=== PATIENT | female | born 1935 | race Caucasian/White ===

== ENCOUNTER 2021-07-04 08:15 | Outpatient (NON) | payer OTHER, SELFPAY ==
[2021-07-04 09:08] LABS: Ferritin 31 ng/mL (8-252); Iron 38 ug/dL (50-170); Percent Iron Saturation 14 % (12-57); Vitamin B12 729 pg/mL (193-986)
[2021-07-04 09:42] LABS: Folic Acid 13.2 ng/mL (8.6->20)
[2021-07-08 12:34] LABS: Transferrin 238 mg/dL (188-341)
== END 2021-07-04 08:16 | disposition home or self-care (01) ==
LOC: CHSLAB 08:19
PROVIDERS: Visit Provider Family Medicine
DX: D64.9 Anemia, unspecified (principal); I50.9 Heart failure, unspecified; I12.9 Hypertensive chronic kidney disease with stage 1 through stage 4 chronic kidney disease, or unspecified chronic kidney disease; N18.9 Chronic kidney disease, unspecified; M81.0 Age-related osteoporosis without current pathological fracture
CPT/HCPCS: 36415; 82607; 82728; 82746; 83540; 83550; 84466

== ENCOUNTER 2021-07-11 07:01 | Outpatient (NON) | payer OTHER, SELFPAY ==
[2021-07-11 07:54] LABS: Basophils Absolute Auto 0.01 K/mm3 (0.00-0.10); Basophils Percent Auto 0.2 % (0.0-1.0); Eosinophils Absolute Auto 0.07 K/mm3 (0.02-0.50); Eosinophils Percent Auto 1.2 % (1.0-6.0); Hematocrit 31.5 % (35.0-42.0); Hemoglobin 9.8 g/dL (11.7-13.8); Immature Granulocyte Absolute 0.02 K/mm3 (0.00-0.00); Immature Granulocyte Percent A 0.3 % (0.0-0.0); Lymphocytes Absolute Auto 0.91 K/mm3 (1.10-4.50); Lymphocytes Percent Auto 15.5 % (18.0-42.0); Mean Corpuscular HGB Conc 31.1 g/dL (32.0-36.0); Mean Corpuscular Hemoglobin 30.3 pg (27.0-31.0); Mean Corpuscular Volume 97.5 fL (78.0-102.0); Mean Platelet Volume 10.3 fl (9.2-11.8); Monocytes Absolute Auto 0.42 K/mm3 (0.10-0.90); Monocytes Percent Auto 7.2 % (2.0-11.0); Neutrophils Absolute Auto 4.4 K/mm3 (1.7-7.2); Neutrophils Percent Auto 75.6 % (50.0-70.0); Platelet Count Result 210 K/mm3 (150-420); Red Blood Count 3.23 M/mm3 (4.20-5.40); Red Cell Distribution Width 13.8 % (11.6-14.4); White Blood Count 5.9 K/mm3 (4.8-10.8)
[2021-07-11 08:29] LABS: Alanine Aminotransferase 13 U/L (14-59); Albumin Level 3.3 g/dL (3.4-5.0); Alkaline Phosphatase 71 U/L (46-116); Anion Gap 8 mmol/L (8-16); Aspartate Amino Transferase 13 U/L (15-37); Bilirubin Direct 0.1 mg/dL (0-0.2); Bilirubin,Total 0.4 mg/dL (0.00-1.00); Blood Urea Nitrogen 34 mg/dL (7-18); Calcium 9.1 mg/dL (8.5-10.1); Carbon Dioxide 28 mmol/L (21-32); Chloride 101 mmol/L (98-108); Estimated Glomerular Filt Rate > 60; Glucose 90 mg/dL (70-99); Magnesium 1.8 mg/dL (1.8-2.4); Osmolality Calculated 291 mOsm/kg (285-295); Potassium 4.4 mmol/L (3.5-5.1); Sodium 137 mmol/L (136-145); Total Protein 6.7 g/dL (6.4-8.2); Vitamin B12 656 pg/mL (193-986)
[2021-07-11 08:53] LABS: Folic Acid 14.7 ng/mL (8.6->20)
[2021-07-11 14:17] LABS: Thyroid Stimulating Hormone 0.68 uIU/mL (0.36-3.74)
[2021-07-11 14:54] LABS: Add Urine Microscopic? YES; Appearance Urine Clear (Clear); Bilirubin Urine Negative (Negative); Blood Urine 3+ (Negative); Color Urine Light Yellow (Yellow); Glucose Urine UA Negative (Negative); Ketones Urine Negative (Negative); Leukocyte Esterase Ur Negative (Negative); Nitrate Urine Positive (Negative); Protein Urine Trace (Negative); Urobilinogen Urine 0.2 mg/dL (0.2-1.0)
[2021-07-11 15:06] LABS: Creatinine Urine 60.52 mg/dL (40-278)
[2021-07-11 15:08] LABS: MALB Creatinine Ratio 300.8 mg/g (0-30); Microalbumin Urine Random 182.1 mg/L
[2021-07-11 15:11] LABS: WBC Urine 0-3 /hpf (0-3)
[2021-07-11 15:12] LABS: Bacteria Urine 3+ /hpf; Squamous Epithelial Cell Urine Few /hpf (Few)
[2021-07-15 02:08] LABS: Vitamin D 25 Hydroxy 39 ng/mL (30-100)
[2021-07-17 16:49] LABS: Methylmalonic Acid 191 nmol/L (87-318)
== END 2021-07-11 07:02 | disposition home or self-care (01) ==
LOC: CHSLAB 07:02
PROVIDERS: Visit Provider Family Medicine
DX: I50.9 Heart failure, unspecified (principal); E55.9 Vitamin D deficiency, unspecified; I12.9 Hypertensive chronic kidney disease with stage 1 through stage 4 chronic kidney disease, or unspecified chronic kidney disease; N18.9 Chronic kidney disease, unspecified; N39.0 Urinary tract infection, site not specified
CPT/HCPCS: 36415; 80048; 80076; 81001; 82043; 82306; 82607; 82746; 83735; 83921; 84443; 85025

== ENCOUNTER 2021-07-11 17:55 | Observation (INO) | payer OTHER, MEDICARE, SELFPAY ==
--- NOTE | ~2021-07-11 | XR_ITS ---
EXAMINATION: XR chest 1V portable EXAM DATE: 07/12/2021 06:30 INDICATION: Elevated bnp TECHNIQUE: Portable AP frontal chest x-ray was obtained. Comparison is made to prior examination from 07/11/2021. FINDINGS: There is a dual lead pacemaker/AICD seen with leads projecting over the expected locations of the right atrial appendage and right ventricle. There is a nasogastric tube seen with tip collimat ed off the study, but below the left hemidiaphragm. Spine stimulator leads. There is cardiomegaly and pulmonary vascular congestion. Patchy bibasilar edema, atelectasis an/or pneumonia. No pneumothorax. Some chronic hyperinflation. Mitral valve replacement. There are bony degenerative changes. IMPRESSION: 1. Findings consistent with CHF exacerbation. 2. Scattered basilar atelectasis, edema and/or pneumonia, mild interval progression. Reviewed, dictated and finalized at location A. IMPRESSION: 1. Findings consistent with CHF exacerbation. 2. Scattered basilar atelectasis, edema and/or pneumonia, mild interval progre ssion.
--- NOTE | ~2021-07-11 | XR_ITS ---
EXAMINATION: XR chest 1V portable INDICATION: Shortness of breath and productive cough TECHNIQUE: Portable AP chest at 1842 hours COMPARISON: None available FINDINGS: Cardiomegaly is noted. There is a mild diffuse interstitial pattern. There are minimal airs pace opacities of the left lung base. No pneumothorax is identified. A dual-lead cardiac pacemaker of the left chest wall ends with leads in expected locations. Changes of cardiac valve surgery are note d. IMPRESSION: 1. Cardiomegaly with mild pulmonary edema. 2. Left basilar airspace opacity, consistent with atelectasis versus pneumonia. Reviewed, dictated and finalized at location F.
[2021-07-11 18:17] VITALS: BP 95/54; PULSE 106; RESP 16; TEMP 36.3; O2SAT 99
--- NOTE | 2021-07-11 18:27 | ECG_ITS ---
Measurements Intervals [place] Rate: 98 P: TX: 0 QRS: 147 QRSD: 164 T: 91 QT: 400 QTc: 512 Interpretive Statements ELECTRONIC AV SEQUENTIAL PACED RATE WITH APPROPRIATE SENSING AND CAPTURE ABNORMAL RHYTHM ECG NO PREVIOUS ECG AVAILABLE FOR COMPARISON Electronically Signed On 07-12-2021 15:32:12 CDT by Gordy Zambrano M.D.
--- NOTE | 2021-07-11 18:37 | ED.FEVER ---
HPI - Fever General Chief Complaint: Fever Stated Complaint: fever Mode of arrival: wheelchair Limitations: altered mental status ( history of dementia) History of Present Illness HPI Narrative: patient is 85-year-old female from [facility] she was wheeled over and left at admitting, with increased shortness of breath with upper airway gurgling with no wheezing the patient is demented is a DNR, has a history of CHF, currently O2 sats 97% on 3L. Patient denies any chest pain no belly pain does have some peripheral edema, [facility] staff stated that she had fever at the [facility] but her current temperature is 97 0.5 and patient had a negative rapid COVID that was performed today. MD elicited complaint: fever and weakness Onset (ago): day(s) Related Data Home Medications Medication Instructions Recorded Confirmed acetaminophen [Tylenol] 650 mg PO Q4H PRN 07/11/21 07/11/21 apixaban [Eliquis] 5 mg PO BID 07/11/21 07/11/21 carvedilol 6.25 mg PO BID 07/11/21 07/11/21 docusate sodium 100 mg PO PC PRN MDD 2 07/11/21 07/11/21 duloxetine 30 mg PO BID 07/11/21 07/11/21 furosemide 20 mg PO BID 07/11/21 07/11/21 gabapentin 600 mg PO BID 07/11/21 07/11/21 memantine 7 mg PO DAILY 07/11/21 07/11/21 risperidone 0.25 mg PO HS 07/11/21 07/11/21 sacubitril-valsartan [Entresto] 49 - 51 tablet PO BID 07/11/21 07/11/21 spironolactone 12.5 mg PO DAILY 07/11/21 07/11/21 Allergies Allergy/AdvReac Type Severity Reaction Status Date / Time ciprofloxacin Allergy Unknown Unknown Verified 07/11/21 18:30 fluocinolone acetonide Allergy Unknown Unknown Verified 07/11/21 18:30 morphine Allergy Unknown Unknown Verified 07/11/21 18:30 prochlorperazine Allergy Unknown Unknown Verified 07/11/21 18:30 Review of Systems Review of Systems: All systems reviewed & are unremarkable except as noted in HPI and below PMFSH Past Medical History Medical History CHF (congestive heart failure) Family History Family History Father Family history of heart disease in male family member before age 55 Social History Social History Smoking status: Never smoker Alcohol intake: never Exam Const: General: no acute distress and ill appearing Orientation/consciousness: patient oriented x3 and confusion Limitations: altered mental status HENMT: Head: normal to inspection Eyes: Conjunctivae: conjunctivae normal Pupils: Equal, round and reactive pupils present Neck: Neck: normal visual inspection, no lymphadenopathy and no meningeal signs Chest: Chest palpation & inspection: normal inspection of the chest Resp: Auscultation: crackles and diminished lung sounds Cardio: Rate: regular rate and tachycardic GI: GI Palp: Yes Soft to palpation Percussion: Yes normal to percussion : General: Yes no CVA tenderness Skin: General skin exam: normal color Rashes: no rashes Neuro: General: moves all extremities, no meningeal signs and no focal motor deficits Speech: Abnormal speech present Psych: Appearance: disheveled Mental Status: mental status grossly normal Course INSPECTOR AND MENDER/PA Physician Supervision patient had a chest x-ray and labs at reviewed were reviewed, the patient started on oxygen and O2 sat currently at 97% current temperature is 97.7?. Vital Signs Vital signs: Vital Signs Temperature 36.3 C L 07/11/21 18:17 Pulse Rate 106 H 07/11/21 18:17 Respiratory Rate 16 07/11/21 18:17 Blood Pressure 95/54 L 07/11/21 18:17 Pulse Oximetry 99 07/11/21 18:17 Temperature 36.3 C L 07/11/21 18:17 Pulse Rate 106 H 07/11/21 18:17 Respiratory Rate 16 07/11/21 18:17 Blood Pressure 95/54 L 07/11/21 18:17 Pulse Oximetry 99 07/11/21 18:17 Critical Care Time Critical Care Time Critical Care Time: No Discharge Plan Discharge Clinical Impression: CHF (congestiv
[2021-07-11 18:52] LABS: Basophils Absolute Auto 0.01 K/mm3 (0.00-0.10); Basophils Percent Auto 0.1 % (0.0-1.0); Hematocrit 32.5 % (35.0-42.0); Hemoglobin 10.4 g/dL (11.7-13.8); Immature Granulocyte Absolute 0.04 K/mm3 (0.00-0.00); Immature Granulocyte Percent A 0.4 % (0.0-0.0); Lymphocytes Absolute Auto 0.81 K/mm3 (1.10-4.50); Lymphocytes Percent Auto 8.5 % (18.0-42.0); Mean Corpuscular Hemoglobin 31.1 pg (27.0-31.0); Mean Corpuscular Volume 97.3 fL (78.0-102.0); Mean Platelet Volume 9.9 fl (9.2-11.8); Monocytes Absolute Auto 0.84 K/mm3 (0.10-0.90); Monocytes Percent Auto 8.8 % (2.0-11.0); Neutrophils Absolute Auto 7.8 K/mm3 (1.7-7.2); Neutrophils Percent Auto 82.2 % (50.0-70.0); Platelet Count Result 210 K/mm3 (150-420); Red Blood Count 3.34 M/mm3 (4.20-5.40); Red Cell Distribution Width 13.7 % (11.6-14.4); White Blood Count 9.5 K/mm3 (4.8-10.8)
[2021-07-11 19:18] LABS: Alanine Aminotransferase 14 U/L (14-59); Albumin Level 3.4 g/dL (3.4-5.0); Alkaline Phosphatase 78 U/L (46-116); Anion Gap 9 mmol/L (8-16); Aspartate Amino Transferase 18 U/L (15-37); Bilirubin,Total 0.4 mg/dL (0.00-1.00); Blood Urea Nitrogen 41 mg/dL (7-18); Calcium 9.6 mg/dL (8.5-10.1); Carbon Dioxide 27 mmol/L (21-32); Chloride 101 mmol/L (98-108); Estimated Glomerular Filt Rate 42; Glucose 124 mg/dL (70-99); NT Pro B Type Natriuretic Pept 9094 pg/mL (0-450); Osmolality Calculated 295 mOsm/kg (285-295); Potassium 4.5 mmol/L (3.5-5.1); Sodium 137 mmol/L (136-145); Total Protein 7.7 g/dL (6.4-8.2)
[2021-07-11 19:28] LABS: CRP > 10.6 mg/dL (0.0-0.9)
[2021-07-11 19:49] VITALS: O2SAT 96
[2021-07-11 20:00] VITALS: PULSE 99; O2SAT 93; O2SAT 95
[2021-07-11 20:52] VITALS: BP 85/61; PULSE 99; RESP 25; TEMP 37.2; O2SAT 95
--- NOTE | 2021-07-11 20:55 | PC.NURSE ---
admit for observation room 206
[2021-07-11] MEDS: DULoxetine HCL 30 MG CAPSULE.DR PO (21:02)
[2021-07-11] MEDS: GABAPENTIN 300 MG CAPSULE 600 MG PO (21:13)
[2021-07-11] MEDS: risperiDONE 0.25 MG TABLET PO (21:30)
--- NOTE | 2021-07-11 21:42 | PC.NURSE ---
Spoke with patient's daughter Malka Jackson-first senior professional services consultant list for mother. Stated father is POA but is 87 and age related issues. He has been difficult and disruptive at nursing facility when visiting patient without other family present. Is allowed to visit with other family present. Patient is alert to self only. Audible wheezes-lungs sound congested and wet. Contacted PUNCH PRESS SETTER Sonda-order received to hold fluids. PUNCH PRESS SETTER reports patient had received several BP lowering meds at facility. Will monitor BP.
--- NOTE | 2021-07-11 21:50 | PC.NURSE ---
Patient admitted to room 206 from the ER, is confused and unable to answer questions. Call light is in reach.
--- NOTE | 2021-07-11 22:58 | PC.NURSE ---
16 morales catheter inserted per orders, 300 cc irais urine returned, tolerated fair.
[2021-07-12] VITALS (7 sets, daily range): BP systolic 88–96; BP diastolic 60–64; PULSE 81–93; RESP 20–36; TEMP 35.8–37.7; O2SAT 93–94
[2021-07-12] MEDS: LORazepam INJ (*CRX) 2 MG/ML VIAL 0.5 MG IV PUSH (04:23)
[2021-07-12 05:31] LABS: Hematocrit 31.9 % (35.0-42.0); Hemoglobin 9.9 g/dL (11.7-13.8); Mean Corpuscular Hemoglobin 30.2 pg (27.0-31.0); Mean Corpuscular Volume 97.3 fL (78.0-102.0); Mean Platelet Volume 10.1 fl (9.2-11.8); Platelet Count Result 197 K/mm3 (150-420); Red Blood Count 3.28 M/mm3 (4.20-5.40); Red Cell Distribution Width 13.6 % (11.6-14.4); White Blood Count 8.4 K/mm3 (4.8-10.8)
[2021-07-12 05:47] LABS: Alanine Aminotransferase 11 U/L (14-59); Albumin Level 3.1 g/dL (3.4-5.0); Alkaline Phosphatase 69 U/L (46-116); Anion Gap 8 mmol/L (8-16); Aspartate Amino Transferase 18 U/L (15-37); Bilirubin,Total 0.4 mg/dL (0.00-1.00); Blood Urea Nitrogen 40 mg/dL (7-18); Calcium 9.3 mg/dL (8.5-10.1); Carbon Dioxide 28 mmol/L (21-32); Chloride 102 mmol/L (98-108); Estimated Glomerular Filt Rate 50; Glucose 117 mg/dL (70-99); Magnesium 1.8 mg/dL (1.8-2.4); Osmolality Calculated 296 mOsm/kg (285-295); Potassium 4.1 mmol/L (3.5-5.1); Sodium 138 mmol/L (136-145); Total Protein 7.3 g/dL (6.4-8.2)
[2021-07-12] MEDS: APIXABAN 2.5 MG TABLET 5 MG PO (08:16)
[2021-07-12] MEDS: GABAPENTIN 300 MG CAPSULE 600 MG PO (08:16)
[2021-07-12] MEDS: DULoxetine HCL 30 MG CAPSULE.DR PO (08:21)
[2021-07-12] MEDS: FUROSEMIDE INJ 100 MG/10 ML VIAL 80 MG IV PUSH (08:51)
--- NOTE | 2021-07-12 09:26 | PM.SD2 ---
Same Day Admit/Disch: HPI History of Present Illness Chief complaint: UTI,CHF Narrative: Verito Jackson is a 85 year old female that presented to our emergency department from the halfway for shortness of breath. Patient has a past medical history of congestive heart failure and pacemaker placement. Patient is a poor historian all notes obtained from medical records and family members. Apparently patient was wheeled to our admission department and left unattended by halfway staff at the halfway. According to our ED documentation patient was experiencing shortness of breath while at the halfway. Blood pressure 96/60 according to family member patient blood pressure is chronically low,, 81, 36, 99.9, 94% on 2 L nasal cannula. WBCs 9.5 hemoglobin 10.4, hematocrit 32.5, platelets 210, sodium 137, potassium 4.5, BUN 41, creatinine 1.22, glucose 124, lactic acid 1.0, magnesium 1.8 CRP greater than 10.6, BNP 9094, UA trace of protein blood nitrate and bacteria, chest x-ray indicates pulmonary edema along with possible pneumonia EKG paced with a heart rate of 98. At the time of assessment patient is confused and hallucinating she is not alert or orientated to her name, location ,or time this is not patient's baseline. Spoke with patient's POA , her [id number] ,to determine how aggressive she wanted treatment she referred me to patient's daughter who is a retired nurse. Patient daughter requested that patient be sent to [facility] with her air traffic control specialist Dr. Lawler and noted that they will change her CODE STATUS. Patient is currently a DNR. Patient has been accepted by Dr. Colby at [facility]. Informed patient's POA of transfer acceptance. [facility] Past Medical History Medical History CHF (congestive heart failure) Family History Family History Father Family history of heart disease in male family member before age 55 Social History Social History Smoking status: Unknown if ever smoked Second hand tobacco smoke exposure: No Alcohol intake: unknown Substance use: unknown Substance use type: does not use Spiritual care concerns: No Same Day Admit/Disch: Med Pre-admit Medications Home Medications Medication Instructions Recorded Confirmed Type acetaminophen [Tylenol] 650 mg PO Q4H PRN 07/11/21 07/11/21 History apixaban [Eliquis] 5 mg PO BID 07/11/21 07/11/21 History carvedilol 6.25 mg PO BID 07/11/21 07/11/21 History docusate sodium 100 mg PO PC PRN MDD 2 07/11/21 07/11/21 History duloxetine 30 mg PO BID 07/11/21 07/11/21 History furosemide 20 mg PO BID 07/11/21 07/11/21 History gabapentin 600 mg PO BID 07/11/21 07/11/21 History memantine 7 mg PO DAILY 07/11/21 07/11/21 History risperidone 0.25 mg PO HS 07/11/21 07/11/21 History sacubitril-valsartan [Entresto] 49 - 51 tablet PO BID 07/11/21 07/11/21 History spironolactone 12.5 mg PO DAILY 07/11/21 07/11/21 History Exam Narrative: GENERAL: Ill appearance with confusion hallucinations and labored breathing HEAD: normocephalic, atraumatic. EYES: PERRL. Sclera clear/white. Vision is grossly intact. EARS: External ears normal, auditory canals clear and without drainage, TMs normal without perforation. Hearing grossly intact. NOSE: External nose normal with no obvious nasal discharge, nares without redness, no rhinorrhea. THROAT: Mucous membranes moist, posterior pharynx clear. NECK: Neck supple, non-tender without lymphadenopathy, masses or thyromegaly. CARDIOVASCULAR: Regular rate and rhythm without murmurs, gallops, or rubs. RESPIRATORY: With Rhonchi with crackles and diminished tachypnea GASTROINTESTINAL: Abdomen soft, non-tender, nondistended. Bowel sounds are active. No hepato-splenomegaly, or palpable masses. No guarding. SKIN: warm, intact with no suspicious lesions or rash, good
[2021-07-12 09:55] LABS: SARS-CoV-2 Ag Negative (Negative)
--- NOTE | 2021-07-12 10:17 | PC.NURSE ---
Patient transferring to her personal insole tape stitcher [facility] in [place]. Report called to Sandra in IMU.
--- NOTE | 2021-07-12 10:50 | PC.NURSE ---
[facility] ambulance service arrived to transfer patient to [place]. Patient transferred from bed to stretcher with assist of 4. Patient on O2 at 2 L via n/c. Personal belongings transferred with patient.
== END 2021-07-12 10:50 | disposition short-term general hospital (02) ==
LOC: CHSED 19:38 → CHS2ND 19:53
PROVIDERS: Nurse Practitioner; Admitting Provider Internal Medicine; Emergency Provider Emergency Medicine; PCP Family Medicine; Visit Provider Internal Medicine
DX: I50.9 Heart failure, unspecified (principal); J18.9 Pneumonia, unspecified organism; N39.0 Urinary tract infection, site not specified; I95.9 Hypotension, unspecified; F03.90 Unspecified dementia, unspecified severity, without behavioral disturbance, psychotic disturbance, mood disturbance, and anxiety; Z95.0 Presence of cardiac pacemaker; Z20.822 Contact with and (suspected) exposure to COVID-19
CPT/HCPCS: 36415; 71045; 80053; 83605; 83735; 83880; 85025; 85027; 86140; 87040; 87086; 87088; 87426; 93005; 96365; 96375; 99285; A9270; C9803; G0378; J0696; J1940; J2060

== ENCOUNTER 2021-07-23 06:46 | Outpatient (NON) | payer OTHER, MEDICARE, SELFPAY ==
[2021-08-01 09:36] LABS: Reference Lab Test Result NOT ISOLATED
== END 2021-07-23 06:47 | disposition home or self-care (01) ==
LOC: CHSLAB 06:48
PROVIDERS: Visit Provider Family Medicine
DX: B02.9 Zoster without complications (principal)
CPT/HCPCS: 36415; 87254

== ENCOUNTER 2021-08-22 14:03 | Outpatient (CLI) | payer OTHER, SELFPAY ==
--- NOTE | ~2021-08-22 | XR_ITS ---
XR chest 2V 08/22/2021 14:35 Indication: Shortness of breath Procedure: 2 view chest Comparison: 07/12/2021 Findings: Status post median sternotomy for CABG. Pacemaker leads in expected position. There is a pr osthetic heart valve. Spinal stimulator leads are noted overlying the upper thoracic spine. Bibasilar infiltrates are present which may represent atelectasis or pneumonia. Possible small effusion. The l ungs are hyperinflated which is consistent with, but not diagnostic of chronic obstructive pulmonary disease. There is cardiomegaly. Impression: 1: Bibasilar infiltrates may represent atelectasis or pneumonia. 2: Cardiomegaly. Reviewed, dictated and finalized at location A. Impression: 1: Bibasilar infiltrates may represent atelectasis or pneumonia. 2: Cardiomegaly.
== END 2021-08-22 14:04 | disposition home or self-care (01) ==
PROVIDERS: PCP Family Medicine; Visit Provider Family Medicine
DX: R06.02 Shortness of breath (principal); Z09 Encounter for follow-up examination after completed treatment for conditions other than malignant neoplasm; J18.9 Pneumonia, unspecified organism
CPT/HCPCS: 71046

== ENCOUNTER 2021-08-27 19:42 | Outpatient (NON) | payer OTHER, SELFPAY ==
[2021-08-27 19:56] LABS: Add Urine Microscopic? NO; Appearance Urine Clear (Clear); Bilirubin Urine Negative (Negative); Blood Urine Negative (Negative); Color Urine Light Yellow (Yellow); Glucose Urine UA Negative (Negative); Ketones Urine Negative (Negative); Leukocyte Esterase Ur Negative LEU/UL (Negative); Nitrate Urine Negative (Negative); Protein Urine Negative (Negative); Urobilinogen Urine 0.2 mg/dL (0.2-1.0)
== END 2021-08-27 19:43 | disposition home or self-care (01) ==
LOC: CHSLAB 19:43
PROVIDERS: PCP Family Medicine; Visit Provider Family Medicine
DX: N39.0 Urinary tract infection, site not specified (principal)
CPT/HCPCS: 81003

== ENCOUNTER 2022-02-18 06:25 | Outpatient (NON) | payer OTHER, SELFPAY ==
[2022-02-18 07:05] LABS: Basophils Absolute Auto 0.02 K/mm3 (0.00-0.10); Basophils Percent Auto 0.3 % (0.0-1.0); Eosinophils Absolute Auto 0.12 K/mm3 (0.02-0.50); Eosinophils Percent Auto 1.9 % (1.0-6.0); Hematocrit 34.2 % (35.0-42.0); Hemoglobin 10.7 g/dL (11.7-13.8); Immature Granulocyte Absolute 0.01 K/mm3 (0.00-0.00); Immature Granulocyte Percent A 0.2 % (0.0-0.0); Lymphocytes Absolute Auto 1.08 K/mm3 (1.10-4.50); Lymphocytes Percent Auto 16.7 % (18.0-42.0); Mean Corpuscular HGB Conc 31.3 g/dL (32.0-36.0); Mean Corpuscular Hemoglobin 29.5 pg (27.0-31.0); Mean Corpuscular Volume 94.2 fL (78.0-102.0); Monocytes Absolute Auto 0.62 K/mm3 (0.10-0.90); Monocytes Percent Auto 9.6 % (2.0-11.0); Neutrophils Absolute Auto 4.6 K/mm3 (1.7-7.2); Neutrophils Percent Auto 71.3 % (50.0-70.0); Platelet Count Result 210 K/mm3 (150-420); Red Blood Count 3.63 M/mm3 (4.20-5.40); Red Cell Distribution Width 14.2 % (11.6-14.4); White Blood Count 6.5 K/mm3 (4.8-10.8)
[2022-02-18 07:49] LABS: Alanine Aminotransferase 15 U/L (14-59); Albumin Level 3.7 g/dL (3.4-5.0); Alkaline Phosphatase 78 U/L (46-116); Anion Gap 8 mmol/L (8-16); Aspartate Amino Transferase 12 U/L (15-37); Bilirubin Direct 0.2 mg/dL (0-0.2); Bilirubin,Total 0.5 mg/dL (0.00-1.00); Blood Urea Nitrogen 22 mg/dL (7-18); Calcium 9.5 mg/dL (8.5-10.1); Carbon Dioxide 32 mmol/L (21-32); Chloride 105 mmol/L (98-108); Estimated Glomerular Filt Rate 60; Glucose 87 mg/dL (70-99); Magnesium 1.9 mg/dL (1.8-2.4); Osmolality Calculated 302 mOsm/kg (285-295); Potassium 4.5 mmol/L (3.5-5.1); Sodium 145 mmol/L (136-145); Thyroid Stimulating Hormone 0.69 uIU/mL (0.36-3.74); Total Protein 7.7 g/dL (6.4-8.2); Vitamin B12 418 pg/mL (193-986)
[2022-02-18 13:45] LABS: Creatinine Urine 62.97 mg/dL (40-278); Microalbumin Urine Random 20.2 mg/L
[2022-02-20 19:51] LABS: Methylmalonic Acid 152 nmol/L (87-318)
[2022-02-25 20:00] LABS: Vitamin D 25 Hydroxy 29 ng/mL (30-100)
== END 2022-02-18 06:26 | disposition home or self-care (01) ==
LOC: CHSLAB 06:27
PROVIDERS: Visit Provider Family Medicine
DX: I50.9 Heart failure, unspecified (principal); I11.0 Hypertensive heart disease with heart failure; Z79.899 Other long term (current) drug therapy
CPT/HCPCS: 36415; 80048; 80076; 82043; 82306; 82607; 83735; 83921; 84443; 85025

== ENCOUNTER 2022-02-24 14:01 | Outpatient (CLI) | payer OTHER, SELFPAY ==
--- NOTE | ~2022-02-24 | XR_ITS ---
XR ankle LT min 3V DATE: 02/24/2022 14:39 INDICATION: Swelling of left ankle and foot TECHNIQUE: 4 views including crosstable lateral COMPARISON: None FINDINGS: There is prominent soft tissue swelling of the left ankle. There is diffuse osteopenia. No fracture or dislocation of the ankle or disruption of the ankle mortise. No periosteal reaction or bone destruction. There is mild plantar calcaneal enthesopathy. IMPRESSION: Prominent soft tissue swelling of the ankle Osteopenia Mild plantar calcaneal enthesopathy Reviewed, dictated and finalized at location B. H COOK
--- NOTE | ~2022-02-24 | XR_ITS ---
XR foot LT min 3V DATE: 02/24/2022 14:40 INDICATION: Swollen left ankle and foot TECHNIQUE: 4 views of left foot COMPARISON: 02/24/2022 left ankle FINDINGS: There is diffuse osteopenia. There is mild plantar calcaneal enthesopathy. Osteoarthritic changes at some of the tarsal and tarsometatarsal joints. No fracture or dislocation, periosteal reaction or bone destruction is detected. IMPRESSION: Osteopenia Osteoarthritis Mild plantar calcaneal enthesopathy Reviewed, dictated and finalized at location B. NCIAL SERVICES DIRECTOR
== END 2022-02-24 14:02 | disposition home or self-care (01) ==
PROVIDERS: PCP Family Medicine; Visit Provider Family Medicine
DX: M21.962 Unspecified acquired deformity of left lower leg (principal)
CPT/HCPCS: 73610; 73630

== ENCOUNTER 2022-04-24 06:33 | Outpatient (NON) | payer OTHER, SELFPAY ==
[2022-04-24 07:00] LABS: Basophils Absolute Auto 0.01 K/mm3 (0.00-0.10); Basophils Percent Auto 0.2 % (0.0-1.0); Eosinophils Absolute Auto 0.13 K/mm3 (0.02-0.50); Hematocrit 33.7 % (35.0-42.0); Hemoglobin 10.9 g/dL (11.7-13.8); Immature Granulocyte Absolute 0.02 K/mm3 (0.00-0.00); Immature Granulocyte Percent A 0.3 % (0.0-0.0); Lymphocytes Absolute Auto 1.45 K/mm3 (1.10-4.50); Mean Corpuscular HGB Conc 32.3 g/dL (32.0-36.0); Mean Corpuscular Hemoglobin 30.5 pg (27.0-31.0); Mean Corpuscular Volume 94.4 fL (78.0-102.0); Mean Platelet Volume 10.3 fl (9.2-11.8); Monocytes Absolute Auto 0.52 K/mm3 (0.10-0.90); Monocytes Percent Auto 7.9 % (2.0-11.0); Neutrophils Absolute Auto 4.5 K/mm3 (1.7-7.2); Neutrophils Percent Auto 67.6 % (50.0-70.0); Platelet Count Result 206 K/mm3 (150-420); Red Blood Count 3.57 M/mm3 (4.20-5.40); Red Cell Distribution Width 13.6 % (11.6-14.4); White Blood Count 6.6 K/mm3 (4.8-10.8)
[2022-04-24 07:12] LABS: Anion Gap 7 mmol/L (8-16); Blood Urea Nitrogen 19 mg/dL (7-18); Calcium 9.4 mg/dL (8.5-10.1); Carbon Dioxide 32 mmol/L (21-32); Chloride 104 mmol/L (98-108); Estimated Glomerular Filt Rate > 60; Glucose 79 mg/dL (70-99); Osmolality Calculated 297 mOsm/kg (285-295); Potassium 4.1 mmol/L (3.5-5.1); Sodium 143 mmol/L (136-145)
== END 2022-04-24 06:34 | disposition home or self-care (01) ==
LOC: CHSLAB 06:34
PROVIDERS: Visit Provider Family Medicine
DX: I50.9 Heart failure, unspecified (principal); N18.9 Chronic kidney disease, unspecified; I10 Essential (primary) hypertension
CPT/HCPCS: 36415; 80048; 85025

== ENCOUNTER 2022-07-29 07:11 | Outpatient (NON) | payer OTHER, SELFPAY ==
[2022-07-29 07:50] LABS: Alanine Aminotransferase 16 U/L (14-59); Albumin Level 3.3 g/dL (3.4-5.0); Alkaline Phosphatase 74 U/L (46-116); Aspartate Amino Transferase 14 U/L (15-37); Bilirubin Direct 0.2 mg/dL (0-0.2); Bilirubin,Total 0.6 mg/dL (0.00-1.00); Magnesium 1.9 mg/dL (1.8-2.4)
== END 2022-07-29 07:12 | disposition home or self-care (01) ==
LOC: CHSLAB 07:13
PROVIDERS: Visit Provider Family Medicine
DX: I10 Essential (primary) hypertension (principal); I50.9 Heart failure, unspecified; N18.9 Chronic kidney disease, unspecified
CPT/HCPCS: 36415; 80076; 83735

== ENCOUNTER 2022-11-27 06:51 | Outpatient (NON) | payer OTHER, SELFPAY ==
[2022-11-27 07:21] LABS: Basophils Absolute Auto 0.02 K/mm3 (0.00-0.10); Basophils Percent Auto 0.3 % (0.0-1.0); Eosinophils Percent Auto 1.6 % (1.0-6.0); Hematocrit 36.2 % (35.0-42.0); Hemoglobin 11.7 g/dL (11.7-13.8); Immature Granulocyte Absolute 0.02 K/mm3 (0.00-0.00); Immature Granulocyte Percent A 0.3 % (0.0-0.0); Lymphocytes Absolute Auto 1.41 K/mm3 (1.10-4.50); Lymphocytes Percent Auto 22.5 % (18.0-42.0); Mean Corpuscular HGB Conc 32.3 g/dL (32.0-36.0); Mean Corpuscular Hemoglobin 31.4 pg (27.0-31.0); Mean Corpuscular Volume 97.1 fL (78.0-102.0); Mean Platelet Volume 10.7 fl (9.2-11.8); Monocytes Absolute Auto 0.45 K/mm3 (0.10-0.90); Monocytes Percent Auto 7.2 % (2.0-11.0); Neutrophils Absolute Auto 4.3 K/mm3 (1.7-7.2); Neutrophils Percent Auto 68.1 % (50.0-70.0); Platelet Count Result 196 K/mm3 (150-420); Red Blood Count 3.73 M/mm3 (4.20-5.40); White Blood Count 6.3 K/mm3 (4.8-10.8)
[2022-11-27 08:11] LABS: Alanine Aminotransferase 10 U/L (14-59); Albumin Level 3.3 g/dL (3.4-5.0); Alkaline Phosphatase 82 U/L (46-116); Anion Gap 9 mmol/L (8-16); Aspartate Amino Transferase < 10 U/L (15-37); Bilirubin Direct 0.1 mg/dL (0-0.2); Bilirubin,Total 0.4 mg/dL (0.00-1.00); Blood Urea Nitrogen 13 mg/dL (7-18); Calcium 9.7 mg/dL (8.5-10.1); Carbon Dioxide 32 mmol/L (21-32); Chloride 104 mmol/L (98-108); Estimated Glomerular Filt Rate > 60; Glucose 80 mg/dL (70-99); Osmolality Calculated 299 mOsm/kg (285-295); Potassium 3.6 mmol/L (3.5-5.1); Sodium 145 mmol/L (136-145); Thyroid Stimulating Hormone 0.74 uIU/mL (0.36-3.74); Total Protein 6.9 g/dL (6.4-8.2); Vitamin B12 974 pg/mL (193-986)
[2022-11-30 20:40] LABS: Vitamin D 25 Hydroxy 42 ng/mL (30-100)
[2022-11-30 22:33] LABS: Methylmalonic Acid 109 nmol/L (87-318)
== END 2022-11-27 06:52 | disposition home or self-care (01) ==
LOC: CHSLAB 06:52
PROVIDERS: Visit Provider Family Medicine
DX: I25.10 Atherosclerotic heart disease of native coronary artery without angina pectoris (principal); I50.9 Heart failure, unspecified; E55.9 Vitamin D deficiency, unspecified
CPT/HCPCS: 36415; 80048; 80076; 82306; 82607; 83735; 83921; 84443; 85025

== ENCOUNTER 2023-01-07 10:59 | Outpatient (CLI) | payer OTHER, SELFPAY ==
--- NOTE | ~2023-01-07 | XR_ITS ---
XR chest 2V DATE: 01/07/2023 11:42 INDICATION: Cough TECHNIQUE: Portable AP chest on 01/07/2023 at 1133 hours COMPARISON: 08/22/2021 portable AP chest FINDINGS: Status post sternotomy and mitral valve replacement. Left pacemaker with leads overlying r ight atrium and right ventricle. Cardiomegaly. Aortic arch calcification. There is patchy infiltrate in the lower lungs, much more prominent on the right; differential diagnos is includes pneumonia, aspiration pneumonitis. No pleural effusion or pneumothorax. Diffuse osteopenia. Left glenohumeral osteoarthritis. IMPRESSION: Lower lung infiltrates, primarily on the right; pneumonia is suggested Cardiomegaly Reviewed, dictated and finalized at location B. IMPRESSION: Lower lung infiltrates, primarily on the right; pneumonia is sugges dawit Cardiomegaly
== END 2023-01-07 11:00 | disposition home or self-care (01) ==
PROVIDERS: PCP Family Medicine; Visit Provider Family Medicine
DX: R05.9 Cough, unspecified (principal); R91.8 Other nonspecific abnormal finding of lung field; I51.7 Cardiomegaly
CPT/HCPCS: 71046

== ENCOUNTER 2023-01-09 07:35 | Outpatient (NON) | payer OTHER, SELFPAY ==
[2023-01-09 07:41] LABS: Influenza Control Valid (Valid)
== END 2023-01-09 07:36 | disposition home or self-care (01) ==
LOC: CHSLAB 07:36
PROVIDERS: Visit Provider Family Medicine
DX: R05.9 Cough, unspecified (principal)
CPT/HCPCS: 87804

== ENCOUNTER 2023-02-24 07:08 | Outpatient (NON) | payer OTHER, SELFPAY ==
[2023-02-24 07:36] LABS: Basophils Absolute Auto 0.02 K/mm3 (0.00-0.10); Basophils Percent Auto 0.3 % (0.0-1.0); Eosinophils Absolute Auto 0.11 K/mm3 (0.02-0.50); Eosinophils Percent Auto 1.8 % (1.0-6.0); Hematocrit 34.6 % (35.0-42.0); Hemoglobin 11.3 g/dL (11.7-13.8); Immature Granulocyte Absolute 0.02 K/mm3 (0.00-0.00); Immature Granulocyte Percent A 0.3 % (0.0-0.0); Mean Corpuscular HGB Conc 32.7 g/dL (32.0-36.0); Mean Corpuscular Hemoglobin 31.8 pg (27.0-31.0); Mean Corpuscular Volume 97.5 fL (78.0-102.0); Mean Platelet Volume 10.7 fl (9.2-11.8); Monocytes Percent Auto 6.5 % (2.0-11.0); Neutrophils Percent Auto 65.1 % (50.0-70.0); Platelet Count Result 209 K/mm3 (150-420); Red Blood Count 3.55 M/mm3 (4.20-5.40); Red Cell Distribution Width 13.5 % (11.6-14.4); White Blood Count 6.2 K/mm3 (4.8-10.8)
[2023-02-24 07:40] LABS: Anion Gap 3 mmol/L (8-16); Blood Urea Nitrogen 13 mg/dL (7-18); Calcium 9.2 mg/dL (8.5-10.1); Carbon Dioxide 36 mmol/L (21-32); Chloride 101 mmol/L (98-108); Estimated Glomerular Filt Rate > 60; Glucose 84 mg/dL (70-99); Osmolality Calculated 289 mOsm/kg (285-295); Potassium 3.8 mmol/L (3.5-5.1); Sodium 140 mmol/L (136-145)
== END 2023-02-24 07:09 | disposition home or self-care (01) ==
LOC: CHSLAB 07:09
PROVIDERS: Visit Provider Family Medicine
DX: I50.9 Heart failure, unspecified (principal); N18.9 Chronic kidney disease, unspecified; I10 Essential (primary) hypertension
CPT/HCPCS: 36415; 80048; 85025

== ENCOUNTER 2023-03-31 14:43 | Observation (INO) | payer OTHER, SELFPAY ==
[2023-03-31] VITALS (12 sets, daily range): BP systolic 54–78; BP diastolic 40–66; PULSE 94–106; RESP 22–40; TEMP 36.7; O2SAT 92–98; BMI 23.4
--- NOTE | ~2023-03-31 | XR_ITS ---
EXAMINATION: XR abdomen/kub 1V DATE: 03/31/2023 15:31 INDICATION: Abdominal distention. TECHNIQUE: A supine view of the abdomen on 2 radiographs was obtained. COMPARISON: None. FINDINGS: The sigmoid colon is distended and contains a large volume of stool. The small bowel is nor mal in caliber. Epidural electrodes are noted. IMPRESSION: 1. Distended sigmoid colon, consistent with adynamic ileus versus distal obstruction. Reviewed, dictated and finalized at location A. UGH OPERATOR IMPRESSION: 1. Distended sigmoid colon, consistent with adynamic ileus versus distal obstru ction.
--- NOTE | ~2023-03-31 | XR_ITS ---
EXAMINATION: XR chest 1V portable DATE: 03/31/2023 15:31 INDICATION: Shortness of breath. TECHNIQUE: A single frontal view of the chest was obtained. COMPARISON: Chest 2 views 01/07/2023 FINDINGS: The patient is rotated to her left. There is a diffuse interstitial pattern in the lungs. T here are airspace opacities in left lower lung zone. No pleural effusion or pneumothorax. Cardiomegal y is noted. There are changes of heart valve replacement. Epidural electrodes are noted. There is a l eft chest wall pacer with leads in the right atrium and right ventricle. There are old healed right r ib fractures. IMPRESSION: 1. Diffuse lung disease with improvement in right lower lung zone, consistent with pulmonary edema ve rsus pneumonia. 2. Cardiomegaly. Reviewed, dictated and finalized at location A. L CUSTODIAN IMPRESSION: 1. Diffuse lung disease with improvement in right lower lung zone, consistent w ith pulmonary edema versus pneumonia. 2. Cardiomegaly.
[2023-03-31] MEDS: SODIUM CHLORIDE 0.9% IV 1,000 ML 999 ML IV CONT ×2 (14:43→15:24)
--- NOTE | 2023-03-31 15:07 | ED.NAVMDI ---
HPI - Nausea/Vomiting/Diarrhea General Chief complaint: Nausea/Vomiting/Diarrhea Stated complaint: GI issue Time Seen by Provider: 03/31/23 14:54 Source: EMS and other ([facility] reports) Mode of arrival: EMS Limitations: altered mental status and clinical condition History of Present Illness HPI Narrative: Patient is an 87-year-old female from the long term having bloody stools today and dilated abdomen and possible aspiration on food. She is brought to the emergency room of [facility] and unable to talk. She has a baseline dementia process. MD elicited complaint: nausea, vomiting and diarrhea Onset (ago): hour(s) Description of vomiting: food contents Description of diarrhea: blood Associated nausea: Yes Associated abdominal pain: Yes Location of pain: other (unclear with AMS) Radiation: diffuse Pain consistency: constant Exacerbating factors: none Relieving factors: none Related Data Home Medications Medication Instructions Recorded Confirmed acetaminophen 325 mg tablet 650 mg PO Q4H PRN Pain 07/11/21 03/31/23 (Tylenol) apixaban 5 mg tablet (Eliquis) 5 mg PO BID 07/11/21 03/31/23 carvedilol 6.25 mg tablet 6.25 mg PO BID 07/11/21 03/31/23 docusate sodium 100 mg tablet 100 mg PO PC PRN Constipation 07/11/21 03/31/23 duloxetine 30 mg capsule,delayed 30 mg PO BID 07/11/21 03/31/23 release sprinkle furosemide 20 mg tablet 20 mg PO BID 07/11/21 03/31/23 gabapentin 600 mg tablet 600 mg PO BID 07/11/21 03/31/23 memantine 7 mg capsule 7 mg PO DAILY 07/11/21 03/31/23 sprinkle,extended release 24hr sacubitril 49 mg-valsartan 51 mg 49 - 51 tablet PO BID 07/11/21 03/31/23 tablet (Entresto) spironolactone 25 mg tablet 12.5 mg PO DAILY 07/11/21 03/31/23 fentanyl 12 mcg/hr transdermal 1 patch topical USEASDIRECTD 03/31/23 03/31/23 patch Allergies Allergy/AdvReac Type Severity Reaction Status Date / Time ciprofloxacin Allergy Unknown Unknown Verified 03/31/23 15:18 fluocinolone acetonide Allergy Unknown Unknown Verified 03/31/23 15:18 morphine Allergy Unknown Unknown Verified 03/31/23 15:18 prochlorperazine Allergy Unknown Unknown Verified 03/31/23 15:18 Review of Systems Review of Systems: All systems reviewed & are unremarkable except as noted in HPI and below Constitutional: Constitutional: Reports no additional constitutional complaints Eyes: Eyes: Reports no additional eye complaints ENT: Reports system reviewed and no additional complaints, except as documented Cardiovascular: Cardiovascular: Reports no additional cardiovascular complaints Respiratory: Respiratory: Reports no additional respiratory complaints Gastrointestinal: Gastrointestinal: Reports no additional gastrointestinal complaints Genitourinary: Genitourinary: Reports no additional female genitourinary complaints Musculoskeletal: Musculoskeletal: Reports no additional musculoskeletal complaints Integumentary/Breasts: Skin/Breast: Reports system reviewed and no additional complaints, except as docu Neurologic: Reports system reviewed and no additional complaints, except as documented Psychiatric: Psychiatric: Reports no additional psychiatric complaints Endocrine: Endocrine: Reports no additional endocrine complaints Hematologic/Lymphatic: Hematologic/Lymphatic: Reports no additional hematologic/lymphatic complaints Allergic/Immunologic: Allergic/Immunologic: Reports no additional allergic/immunologic complaints [facility] Past Medical History Medical History CHF (congestive heart failure) Family History Family History Father Family history of heart disease in male family member before age 55 Social History Social History Smoking status: Unknown if ever smoked Second hand tobacco smoke exposure: No Alcohol intake: unknown Substance use: unknown Substance use type: do
[2023-03-31 15:30] LABS: Basophils Absolute Auto 0.01 K/mm3 (0.00-0.10); Basophils Percent Auto 0.1 % (0.0-1.0); Hematocrit 36.3 % (35.0-42.0); Hemoglobin 11.6 g/dL (11.7-13.8); Immature Granulocyte Absolute 0.06 K/mm3 (0.00-0.00); Immature Granulocyte Percent A 0.5 % (0.0-0.0); Lymphocytes Absolute Auto 1.08 K/mm3 (1.10-4.50); Lymphocytes Percent Auto 9.2 % (18.0-42.0); Mean Corpuscular Hemoglobin 32.2 pg (27.0-31.0); Mean Corpuscular Volume 100.8 fL (78.0-102.0); Mean Platelet Volume 11.2 fl (9.2-11.8); Monocytes Absolute Auto 0.69 K/mm3 (0.10-0.90); Monocytes Percent Auto 5.9 % (2.0-11.0); Neutrophils Absolute Auto 9.9 K/mm3 (1.7-7.2); Neutrophils Percent Auto 84.3 % (50.0-70.0); Platelet Count Result 131 K/mm3 (150-420); Red Cell Distribution Width 13.9 % (11.6-14.4); White Blood Count 11.8 K/mm3 (4.8-10.8)
[2023-03-31 15:45] LABS: INR 1.2; Partial Thromboplastin Time 41.3 SEC (23.90-30.70); Prothrombin Time 13.3 Seconds (9.50-12.10)
[2023-03-31 15:47] LABS: Alanine Aminotransferase 27 U/L (14-59); Albumin Level 2.4 g/dL (3.4-5.0); Alkaline Phosphatase 63 U/L (46-116); Anion Gap 13 mmol/L (8-16); Aspartate Amino Transferase 40 U/L (15-37); Bilirubin,Total 0.6 mg/dL (0.00-1.00); Blood Urea Nitrogen 47 mg/dL (7-18); Calcium 8.3 mg/dL (8.5-10.1); Carbon Dioxide 26 mmol/L (21-32); Chloride 105 mmol/L (98-108); Estimated Glomerular Filt Rate 18; Glucose 109 mg/dL (70-99); Osmolality Calculated 311 mOsm/kg (285-295); Potassium 4.2 mmol/L (3.5-5.1); Sodium 144 mmol/L (136-145); Total Protein 6.1 g/dL (6.4-8.2)
--- NOTE | 2023-03-31 15:49 | PC.NURSE ---
NO CHANGE IN PT STATUS, CONTINUES TO BE UNRESPONSIVE, RATTLING BREATH SOUNDS NOTED. FAMILY HAS ARRIVED AT BEDSIDE, ERP IS AWARE.
[2023-03-31 15:50] LABS: Lactic Acid Reflex 4.4 mmol/L (0.4-2.0)
[2023-03-31 15:51] LABS: Magnesium 2.5 mg/dL (1.8-2.4)
[2023-03-31 15:52] LABS: Troponin I 113.5 ng/L (0.00-60.4)
--- NOTE | 2023-03-31 15:59 | PC.NURSE ---
ERP AT BEDSIDE SPEAKING FAMILY
--- NOTE | 2023-03-31 16:23 | PC.NURSE ---
NO CHANGE IN PT STATUS, FAMILY AT BEDSIDE. FAMILY HAS DECIDED TO MAKE PT COMFORT CARE ONLY. NEW DNR FORM OBTAINED. WILL CONTINUE TO MONITOR.
[2023-03-31 17:29] LABS: Reflex Lactic Acid Yes or No No Lactic Reflex
--- NOTE | 2023-03-31 17:29 | PC.NURSE ---
NO CHANGE IN PT STATUS, FAMILY REMAINS AT BEDSIDE. PT TO BE ADMITTED TO ROOM 210.
--- NOTE | 2023-03-31 18:15 | ADMGEN ---
This patient, Verito Jackson, was admitted to 2nd Floor Room 210-1. Patient/family oriented to hospital policies and general routines including ID bracelet, bed and alarms, visiting hours, pain management, procedures, bathroom and other care routines, personal items, smoking policy, room service/diet, and visiting hours. Patient admitted on comfort care. Patients family aware of condition, in room at bedside with patient. Family aware of how to use call system. Patient currently resting comfortably in bed with hob elevated. Call light at side. Patient/Family are encouraged to report perceived risks to care and to ask questions if they do not understand what they are told or what they should do.
--- NOTE | 2023-03-31 18:20 | PC.NURSE ---
Patients family has requested no vital signs be taken per patients comfort.
[2023-03-31] MEDS: ATROPINE SULFATE 1% OPHTH SOLN 5 ML BOTTLE 1 DROP SUBLINGUAL (19:20)
[2023-04-01] MEDS: ATROPINE SULFATE 1% OPHTH SOLN 5 ML BOTTLE 1 DROP SUBLINGUAL ×2 (00:01→05:24)
[2023-04-01] MEDS: ONDANSETRON INJ 4 MG/2 ML VIAL IV PUSH (05:16)
--- NOTE | 2023-04-01 05:19 | PC.NURSE ---
Pt given zofran 4 mg IVP to relieve discomfort.
[2023-04-01] MEDS: LORazepam INJ (*CRX) 2 MG/ML VIAL 0.25 MG IV PUSH ×2 (07:56→11:13)
--- NOTE | 2023-04-01 08:16 | PM.IMHP ---
H&P: HPI History of Present Illness Date/Time: 04/01/23 08:16 Chief Complaint: letharic, Bloody stool, constipation Narrative: This is a 87 year old female who is admitted to the hospital with a distended stomach and bloody stool. She has a past medical history of dementia, Congestive heart failure, hypertension, Upon evaluation, it appears that she has a gastrointestinal ruputre, and the family has expressed that they do not want any further intervention. Patient is hypotensive and unresponsive. The family has requested comfort care. and the patient is a Do not resuscitate. That patient have been placed on NPO. Hospice will be consulted as the patient is in septic shock with kidney failure. The family is requesting Ativan and morphine. Patient chart states she is allergic to morphine the benefit outweighs the risk. Patient is experiencing some respiratory distress, breathing rapidily. Oxygen has been applied for comfort. The medical team will continue to provide treatment to make the patient comfortable and monitor her condition over the next few days until hospice can be obtained. If the patient condition stablizes she may be transferred back to the snf for comfort care. Review of Systems Review of Systems: blood in stool, unresponsive, rapid breathing All systems reviewed & are unremarkable except as noted in HPI and below PMFSH Past Medical History Medical History CHF (congestive heart failure) Family History Family History Father Family history of heart disease in male family member before age 55 Social History Social History Smoking status: Never smoker Second hand tobacco smoke exposure: No Alcohol intake: never Substance use: never Substance use type: does not use Spiritual care concerns: No Meds Home Medications and Allergies Home Medications Medication Instructions Recorded Confirmed Type acetaminophen 325 mg tablet 650 mg PO Q4H PRN Pain 07/11/21 03/31/23 History (Tylenol) apixaban 5 mg tablet (Eliquis) 5 mg PO BID 07/11/21 03/31/23 History carvedilol 6.25 mg tablet 6.25 mg PO BID 07/11/21 03/31/23 History docusate sodium 100 mg tablet 100 mg PO PC PRN Constipation 07/11/21 03/31/23 History duloxetine 30 mg capsule,delayed 30 mg PO BID 07/11/21 03/31/23 History release sprinkle furosemide 20 mg tablet 20 mg PO BID 07/11/21 03/31/23 History gabapentin 600 mg tablet 600 mg PO BID 07/11/21 03/31/23 History memantine 7 mg capsule 7 mg PO DAILY 07/11/21 03/31/23 History sprinkle,extended release 24hr sacubitril 49 mg-valsartan 51 mg 49 - 51 tablet PO BID 07/11/21 03/31/23 History tablet (Entresto) spironolactone 25 mg tablet 12.5 mg PO DAILY 07/11/21 03/31/23 History fentanyl 12 mcg/hr transdermal 1 patch topical USEASDIRECTD 03/31/23 03/31/23 History patch Allergies Allergy/AdvReac Type Severity Reaction Status Date / Time ciprofloxacin Allergy Unknown Unknown Verified 03/31/23 15:18 fluocinolone acetonide Allergy Unknown Unknown Verified 03/31/23 15:18 morphine Allergy Unknown Unknown Verified 03/31/23 15:18 prochlorperazine Allergy Unknown Unknown Verified 03/31/23 15:18 Vital Signs Vital Signs - 24 hr 03/31/23 15:10 03/31/23 14:43 03/31/23 14:43 Temperature 98.1 F Pulse Rate 95 98 Respiratory Rate 22 H 40 H Blood Pressure 74/55 L 78/66 L Pulse Oximetry 92 95 Oxygen Delivery Nasal Cannula Nasal Cannula Oxygen Flow Rate 3 3 03/31/23 15:07 03/31/23 15:08 03/31/23 15:43 Temperature Pulse Rate 106 H 95 94 Respiratory Rate 31 H 35 H 37 H Blood Pressure 54/41 L Pulse Oximetry 92 94 97 Oxygen Delivery Oxygen Flow Rate 03/31/23 15:45 03/31/23 15:47 03/31/23 15:51 Temperature Pulse Rate 95 96 98 Respiratory Rate 33 H 25 H 27 H Blood Pressure 67/44 L 61/40 L
--- NOTE | 2023-04-01 09:05 | PHAR ---
OK TO GIVE MORPHINE FOR HOSPICE CARE DESPITE MORPHINE ALLERGY LISTED PER SENIOR SOFTWARE ENGINEER.
[2023-04-01] MEDS: MORPHINE SULFATE ORAL CONC SOL (*CRX) 10 MG/0.5 ML SYRINGE 5 MG PO (10:28)
--- NOTE | 2023-04-01 12:41 | PC.NURSE ---
Pt at 1200 with family at bedside. Sarah TROTTER contacted the towerman and when given the ok contacted the home, [place], that the family indicated. RN gave condolances to the family.
--- NOTE | 2023-04-01 13:24 | PM.DDS ---
Discharge Summary Date and Time Date of : 04/01/23 Time of : 12:00 Provider Pronounced By: Chiquita TROTTER, Amara Castaneda RN Probable Cause of Probable Cause of : GI Bleed , Sepsis, Summary Hospital Course: At 12 noon today, I was informed by the Charge Nurse Shanna that patient had . Prior to her passing the patient was experiencing discomfort, for which she was provided with morphine and Ativan. Patient family was present and at the bedside. Patient was absent of heart beat and heart tone. Additional Data Confirmation of as documented by pronouncing clinician: Heart Tones and Breath Sounds Name of Provider Notified: Adrienne Nassar Time Provider Notified: 12:10 Provider Requests Autopsy: No Family Requests Autopsy: No Date [facility] Notified of : 04/01/23 Time [facility] Notified of : 12:20 Hospice patient?: Yes (comfort measure she was actively dying on admission)
--- NOTE | 2023-04-01 13:36 | PC.NURSE ---
shelter notified at 1330 of patient status.
== END 2023-04-01 13:20 | disposition expired ==
LOC: CHSED 17:25 → CHS2ND 17:32
PROVIDERS: Admitting Provider Internal Medicine; Emergency Provider Emergency Medicine; PCP Family Medicine; Visit Provider Internal Medicine
DX: A41.9 Sepsis, unspecified organism (principal); R65.21 Severe sepsis with septic shock; K56.609 Unspecified intestinal obstruction, unspecified as to partial versus complete obstruction; N17.9 Acute kidney failure, unspecified; I50.9 Heart failure, unspecified; J84.9 Interstitial pulmonary disease, unspecified; K92.2 Gastrointestinal hemorrhage, unspecified; F03.90 Unspecified dementia, unspecified severity, without behavioral disturbance, psychotic disturbance, mood disturbance, and anxiety; K59.00 Constipation, unspecified; Z66 Do not resuscitate; Z79.1 Long term (current) use of non-steroidal anti-inflammatories (NSAID); Z79.01 Long term (current) use of anticoagulants; Z79.899 Other long term (current) drug therapy; Z82.49 Family history of ischemic heart disease and other diseases of the circulatory system
CPT/HCPCS: 36415; 71045; 74018; 80053; 83605; 83735; 84484; 85025; 85610; 85730; 87040; 96361; 96374; 96375; 99285; A9270; G0378; J2060; J2405; J7030